=== PATIENT | male | born 1940 | race Caucasian/White ===

== ENCOUNTER → 2017-10-04 | Outpatient (CLI) | payer MEDICARE, OTHER ==
[~2017-10-04] MED LIST: ASPI325 PO; ASPI81CH PO; CARV25 PO; CEPH500 PO; CLOP75 PO; Coreg12.5 MG PO; DOXA2 PO; DOXA4 PO; FURO20 PO; FURO40 PO; FURO80 PO; Glucophage1000 MG PO; INSDET100 SQ; INVOKANA100 MG PO; LIVALO2 MG PO; LIVALO4 MG PO; LOSA50 PO; METF500 PO; METF500C PO; MIRALAX17 GM PO; Milk Of Ma400 MG/5 M PO; NIFE60ER PO; NIFE90ER PO; OLME20 PO; OLME40 PO; POTCHL20ER PO; Pepcid20 MG PO; ROSU10TA PO; SITA100T2 PO; TOUJEO SOL300 UNIT/1 SQ; [UNRECOGNIZED DRUG - OTHER]
== END | disposition home or self-care (01) ==
LOC: PLD 08:23 → LAB SHORT 08:23
DX: C44.222 Squamous cell carcinoma of skin of right ear and external auricular canal (principal)
CPT/HCPCS: 88305

== ENCOUNTER → 2017-11-20 | Outpatient (CLI) | payer MEDICARE, OTHER ==
[~2017-11-20] MED LIST changes: -MIRALAX17 GM PO; -Milk Of Ma400 MG/5 M PO
== END ==
LOC: LAB SHORT 08:02 → PLD 08:02
DX: C44.222 Squamous cell carcinoma of skin of right ear and external auricular canal (principal)
CPT/HCPCS: 88305

== ENCOUNTER → 2019-04-23 | Outpatient (CLI) | payer MEDICARE, OTHER ==
[~2019-04-23] MED LIST changes: +MIRALAX17 GM PO; +Milk Of Ma400 MG/5 M PO
== END | disposition home or self-care (01) ==
LOC: LAB 13:33 → LAB SHORT 13:33
DX: J34.0 Abscess, furuncle and carbuncle of nose (principal)
CPT/HCPCS: 87070; 87205

== ENCOUNTER 2020-01-11 22:02 | Observation (INO) | payer MEDICARE, OTHER ==
[~2020-01-11] VITALS: Ht 170.2 cm; Wt 126.0 kg
[~2020-01-11 22:02] MED LIST changes: -Glucophage1000 MG PO
[2020-01-11 22:25] LABS: BASOPHILS ABSOLUTE AUTO 0.06 K/mm3 (0.00-0.23); BASOPHILS PERCENT AUTO 1 % (0-2); EOSINOPHILS ABSOLUTE AUTO 0.44 K/mm3 (0.00-0.68); EOSINOPHILS PERCENT AUTO 4 % (0-6); Hematocrit 40.9 % (37.0-53.0); Hemoglobin 12.7 g/dL (13.5-17.5); IMMATURE GRAN ABSOLUTE AUTO 0.04 K/mm3 (0.00-0.10); IMMATURE GRAN PERCENT AUTO 0 % (0-1); LYMPHOCYTES ABSOLUTE AUTO 2.41 K/mm3 (0.84-5.20); LYMPHOCYTES PERCENT AUTO 21 % (21-46); MONOCYTES ABSOLUTE AUTO 1.03 K/mm3 (0.16-1.47); MONOCYTES PERCENT AUTO 9 % (4-13); Mean Corpuscular HGB 31.6 pg (26.0-34.0); Mean Corpuscular HGB Conc 31.1 g/dL (31.5-36.5); Mean Corpuscular Volume 102 fL (80-100); Mean Platelet Volume 10.4 fL (9.1-12.4); NEUTROPHILS ABSOLUTE AUTO 7.76 K/mm3 (1.96-9.15); NEUTROPHILS PERCENT AUTO 66 % (41-73); Platelet Count 197 K/mm3 (150-400); RDW Coefficient Variation 11.5 % (11.7-14.2); RDW Standard Deviation 43.1 fL (35.1-46.3); Red Blood Cell Count 4.02 M/mm3 (4.30-5.90); White Blood Cell Count 11.74 K/mm3 (4.00-11.30)
[2020-01-11 22:46] LABS: Alanine Aminotransfer (ALT/SGP 32 U/L (12-78); Albumin, Blood 3.2 g/dL (3.4-5.0); Albumin/Globulin Ratio 0.7 (0.8-1.8); Alk Phos 69 U/L (50-136); Anion Gap 2 mmol/L (6-16); Aspartate Aminotrans (AST/SGOT 30 U/L (12-37); Bilirubin, Total 0.6 mg/dL (0.1-1.0); Blood Urea Nitrogen 13 mg/dL (8-24); Bun/Creatinine Ratio 14.5 (12.0-20.0); CO2, Blood 32 mmol/L (21-32); Calcium, Blood 8.2 mg/dL (8.5-10.1); Chloride, Blood 104 mmol/L (98-108); Globulin, Blood 4.7 g/dL (2.2-4.0); Glomerular Filtration Rate >60 (60-); Glucose, Blood 179 mg/dL (70-99); Potassium, Blood 3.9 mmol/L (3.5-5.5); Sodium, Blood 138 mmol/L (136-145); Total Protein, Blood 7.9 g/dL (6.4-8.2); Troponin I <0.015 ng/mL (0.000-0.040)
[2020-01-12] MEDS ORDERED: ENTRESTO 49 MG1 EACH PO (00:10)
[2020-01-12] MEDS ORDERED: ELIQUIS5 MG PO (00:15)
[2020-01-12] MEDS ORDERED: GLIM2 PO (00:15)
--- NOTE | 2020-01-12 01:04 | NUR ---
0050 PT ADMITTED TO ROOM 361 PER CART FROM ER; REPORT RECEIVED FROM KYLIE FRANK VIA ER; DENIES CHEST PAIN; ALERT AND ORIENTED X 4.
--- NOTE | 2020-01-12 04:03 | NUR ---
SHIFT SUMMARY: 80 Y/O OBESE MALE RESTED COMFORTABLY ALL SHIFT WHILE WEARING BIPAP; ALERT AND ORIENTED X4; HAPPY AND COOPERATIVE; DENIES CHEST PAIN OR SOB; BED LOW POSITION WITH CALL LIGHT AT SIDE.
[2020-01-12 06:30] LABS: BASOPHILS ABSOLUTE AUTO 0.06 K/mm3 (0.00-0.23); BASOPHILS PERCENT AUTO 1 % (0-2); EOSINOPHILS ABSOLUTE AUTO 0.28 K/mm3 (0.00-0.68); EOSINOPHILS PERCENT AUTO 3 % (0-6); Hematocrit 38.8 % (37.0-53.0); Hemoglobin 12.4 g/dL (13.5-17.5); IMMATURE GRAN ABSOLUTE AUTO 0.01 K/mm3 (0.00-0.10); IMMATURE GRAN PERCENT AUTO 0 % (0-1); LYMPHOCYTES ABSOLUTE AUTO 1.95 K/mm3 (0.84-5.20); LYMPHOCYTES PERCENT AUTO 19 % (21-46); MONOCYTES ABSOLUTE AUTO 0.95 K/mm3 (0.16-1.47); MONOCYTES PERCENT AUTO 9 % (4-13); Mean Corpuscular HGB 32.4 pg (26.0-34.0); Mean Corpuscular Volume 101 fL (80-100); Mean Platelet Volume 10.1 fL (9.1-12.4); NEUTROPHILS ABSOLUTE AUTO 6.84 K/mm3 (1.96-9.15); NEUTROPHILS PERCENT AUTO 68 % (41-73); Platelet Count 176 K/mm3 (150-400); RDW Coefficient Variation 11.5 % (11.7-14.2); RDW Standard Deviation 42.7 fL (35.1-46.3); Red Blood Cell Count 3.83 M/mm3 (4.30-5.90); White Blood Cell Count 10.09 K/mm3 (4.00-11.30)
[2020-01-12 06:43] LABS: Alanine Aminotransfer (ALT/SGP 26 U/L (12-78); Albumin/Globulin Ratio 0.7 (0.8-1.8); Alk Phos 69 U/L (50-136); Anion Gap 1 mmol/L (6-16); Aspartate Aminotrans (AST/SGOT 23 U/L (12-37); Bilirubin, Total 0.8 mg/dL (0.1-1.0); Blood Urea Nitrogen 12 mg/dL (8-24); Bun/Creatinine Ratio 14.9 (12.0-20.0); CO2, Blood 33 mmol/L (21-32); Calcium, Blood 8.2 mg/dL (8.5-10.1); Chloride, Blood 105 mmol/L (98-108); Creatinine, Blood 0.81 mg/dL (0.60-1.20); Globulin, Blood 4.5 g/dL (2.2-4.0); Glomerular Filtration Rate >60 (60-); Glucose, Blood 110 mg/dL (70-99); Potassium, Blood 3.5 mmol/L (3.5-5.5); Sodium, Blood 139 mmol/L (136-145); Total Protein, Blood 7.5 g/dL (6.4-8.2)
[2020-01-12 06:51] LABS: CPK Creatine Kinase 73 U/L (39-308); Troponin I <0.015 ng/mL (0.000-0.040)
[2020-01-12 15:55] LABS: CPK Creatine Kinase 79 U/L (39-308); Troponin I <0.015 ng/mL (0.000-0.040)
[2020-01-12] MEDS ORDERED: PANT40 PO (16:55)
[2020-01-12] MEDS ORDERED: TRAM50 PO (16:56)
[2020-01-12] MEDS ORDERED: CARV25 PO (16:57)
--- NOTE | 2020-01-12 17:18 | NUR ---
PATIENT DISCHARGED TO HOME, PICKED UP BY DAUGHTER. NEW PRESCRIPTIONS CALLED IN TO [facility]. IV SALINE LOCK REMOVED WITHOUT INCIDENT. HE HAS ALL BELONGINGS.
== END 2020-01-12 17:10 | disposition home or self-care (01) ==
LOC: ER 22:02 → MEDS 22:03
PROVIDERS: Emergency Medicine; ADMIT Internal Medicine
DX: R07.89 Other chest pain (principal); E11.9 Type 2 diabetes mellitus without complications; I25.10 Atherosclerotic heart disease of native coronary artery without angina pectoris; E66.9 Obesity, unspecified; G47.33 Obstructive sleep apnea (adult) (pediatric); I48.91 Unspecified atrial fibrillation; I10 Essential (primary) hypertension; E78.5 Hyperlipidemia, unspecified; K21.9 Gastro-esophageal reflux disease without esophagitis; I45.5 Other specified heart block; Z95.0 Presence of cardiac pacemaker; Z95.5 Presence of coronary angioplasty implant and graft
CPT/HCPCS: 36415; 71046; 80053; 82550; 82947; 83690; 83880; 84484; 85025; 93005; 93010; 94660; 94762; 96374; 99285-25; A9270; A9270-GY; C9113

== ENCOUNTER → 2020-08-10 | Outpatient (CLI) | payer MEDICARE, OTHER ==
[~2020-08-10] MED LIST changes: +ALBU90OI INH; +ATOR40TA PO; +CARVEDILOL12.5 MG PO; +DOCU100 PO; +ELIQUIS5 MG PO; +ENTRESTO 49 MG1 EACH PO; +GLIMEPIRIDE4 MG PO; +GLYDO PO; +GUAI600T33 PO; +IPRAT-ALBUT 0.5-3 ML INH; +OMEPRAZOLE MAGN20 MG PO; +PANT40 PO; +PULMICORT0.5 MG/21 INH; +Prednisone10 MG PO; +TERA5 PO; -TOUJEO SOL300 UNIT/1 SQ; +TOUJEO SOL300 UNIT/2 SC; +TRAM50 PO; +VERAPAMIL ER120 M1 PO
== END ==
LOC: LAB 11:18 → LAB SHORT 11:18
DX: L82.1 Other seborrheic keratosis (principal)
CPT/HCPCS: 88305

== ENCOUNTER 2020-11-12 12:20 | Inpatient (IN) | payer MEDICARE, OTHER ==
[~2020-11-12] VITALS: Ht 170.2 cm; Wt 128.8 kg
== END 2020-11-16 14:35 | disposition home or self-care (01) | DRG 291 ==
LOC: ER 12:20 → MEDS 16:15 → ENPENDDIS 11-16 11:25 → MEDS 11-16 14:35
PROVIDERS: ADMIT Internal Medicine
DX: I11.0 Hypertensive heart disease with heart failure (principal); J96.01 Acute respiratory failure with hypoxia; J44.1 Chronic obstructive pulmonary disease with (acute) exacerbation; Z68.41 Body mass index [BMI] 40.0-44.9, adult; I48.20 Chronic atrial fibrillation, unspecified; Z20.822 Contact with and (suspected) exposure to COVID-19; I25.10 Atherosclerotic heart disease of native coronary artery without angina pectoris; I50.33 Acute on chronic diastolic (congestive) heart failure; E78.5 Hyperlipidemia, unspecified; I27.20 Pulmonary hypertension, unspecified; I16.0 Hypertensive urgency; K59.00 Constipation, unspecified; T38.0X5A Adverse effect of glucocorticoids and synthetic analogues, initial encounter; E66.01 Morbid (severe) obesity due to excess calories; E11.9 Type 2 diabetes mellitus without complications; G47.33 Obstructive sleep apnea (adult) (pediatric); E11.65 Type 2 diabetes mellitus with hyperglycemia; K21.9 Gastro-esophageal reflux disease without esophagitis; Z99.89 Dependence on other enabling machines and devices; Z95.0 Presence of cardiac pacemaker; Z98.890 Other specified postprocedural states; Z79.4 Long term (current) use of insulin; Z79.01 Long term (current) use of anticoagulants; Z79.899 Other long term (current) drug therapy
CPT/HCPCS: 36415; 71046; 80053; 80069; 82947; 83735; 83880; 84145; 84443; 84484; 85025; 85379; 85610; 93005; 93010; 93306; 94640; 94644; 94660; 94761; 94762; 96365; 96375; 99285-25; A9270; J1940; J2920; J2930; J3475; J7512

== ENCOUNTER 2021-04-07 08:25 | Inpatient (IN) | payer MEDICARE, OTHER ==
[~2021-04-07] VITALS: Ht 188 cm; Wt 129.1 kg
[2021-04-07 08:47] LABS: pH Blood Arterial 7.14 (7.35-7.45)
[2021-04-07 08:48] LABS: PCO2 Arterial 100 mmHg (35-45); PO2 Arterial 175 mmHg (80-100)
[2021-04-07 08:57] LABS: BASOPHILS ABSOLUTE AUTO 0.11 K/mm3 (0.00-0.23); BASOPHILS PERCENT AUTO 1 % (0-2); EOSINOPHILS PERCENT AUTO 3 % (0-6); Hematocrit 41.8 % (37.0-53.0); Hemoglobin 12.7 g/dL (13.5-17.5); IMMATURE GRAN ABSOLUTE AUTO 0.07 K/mm3 (0.00-0.10); IMMATURE GRAN PERCENT AUTO 0 % (0-1); LYMPHOCYTES ABSOLUTE AUTO 3.01 K/mm3 (0.84-5.20); LYMPHOCYTES PERCENT AUTO 17 % (21-46); MONOCYTES ABSOLUTE AUTO 1.24 K/mm3 (0.16-1.47); MONOCYTES PERCENT AUTO 7 % (4-13); Mean Corpuscular HGB Conc 30.4 g/dL (31.5-36.5); Mean Corpuscular Volume 102 fL (80-100); Mean Platelet Volume 10.3 fL (9.1-12.4); NEUTROPHILS PERCENT AUTO 72 % (41-73); Platelet Count 245 K/mm3 (150-400); RDW Coefficient Variation 11.8 % (11.7-14.2); RDW Standard Deviation 44.2 fL (35.1-46.3); White Blood Cell Count 17.53 K/mm3 (4.00-11.30)
[2021-04-07 09:15] LABS: Alanine Aminotransfer (ALT/SGP 37 U/L (12-78); Albumin, Blood 3.8 g/dL (3.4-5.0); Albumin/Globulin Ratio 0.8 (0.8-1.8); Alk Phos 82 U/L (50-136); Anion Gap 2 mmol/L (6-16); Aspartate Aminotrans (AST/SGOT 29 U/L (12-37); Bilirubin, Total 0.6 mg/dL (0.1-1.0); Blood Urea Nitrogen 18 mg/dL (8-24); Bun/Creatinine Ratio 17.6 (12.0-20.0); CO2, Blood 31 mmol/L (21-32); Calcium, Blood 8.2 mg/dL (8.5-10.1); Chloride, Blood 106 mmol/L (98-108); Creatinine, Blood 1.02 mg/dL (0.60-1.20); Globulin, Blood 4.5 g/dL (2.2-4.0); Glomerular Filtration Rate >60 (60-); Glucose, Blood 196 mg/dL (70-99); Potassium, Blood 4.3 mmol/L (3.5-5.5); Sodium, Blood 139 mmol/L (136-145); Total Protein, Blood 8.3 g/dL (6.4-8.2); Troponin I <0.015 ng/mL (0.000-0.040)
[2021-04-07 09:33] LABS: SARS-Cov-2 (COVID-19) PCR, MMC NEGATIVE (NEGATIVE)
[2021-04-07] MEDS ORDERED: METO5 PO (12:22)
[2021-04-07] MEDS ORDERED: ARNUITY ELLIP200 MCG INH (12:24)
[2021-04-07 14:41] LABS: Base Excess Venous 9.7 mmol/L; Bicarbonate Venous 31.6 mmol/L (24.0-30.0); PCO2 Venous 61.2 mmHg (38-42); PO2 Venous 141 mmHg (38-42); pH Blood Venous 7.37 (7.34-7.37)
--- NOTE | 2021-04-07 16:33 | NUR ---
RECIEVED REPORT FROM EUGENIO @ 4059. PATIENT ARRIVED TO ROOM 347 @ 1851. FOUR STAFF MEMBERS ASSISTED TO TRANSFER PATIENT FROM STRETCHER TO HOSPITAL BED. PATIENT IS ALERT AND ORIENTED. BP ELEVATED. PATIENT ASSISTED WITH COMPLETION OF ADMISSION H&P. AWAITING FOR [facility] TO SEND PATIENTS MED REC.
[2021-04-07] MEDS ORDERED: METO25ER PO (17:11)
[2021-04-07] MEDS ORDERED: ELLIPTA INH (17:16)
--- NOTE | 2021-04-08 04:45 | NUR ---
SHIFT SUMMARRY PATIENT HAD AN EVENT FREE NIGHT WITH NO ACUTE MEDICAL ISSUES. HE REMAINS STABLE WITH O2 SATS AVER 95% ON BIPAP.
[2021-04-08 05:44] LABS: BASOPHILS ABSOLUTE AUTO 0.01 K/mm3 (0.00-0.23); BASOPHILS PERCENT AUTO 0 % (0-2); EOSINOPHILS ABSOLUTE AUTO 0.01 K/mm3 (0.00-0.68); EOSINOPHILS PERCENT AUTO 0 % (0-6); Hematocrit 34.3 % (37.0-53.0); Hemoglobin 10.9 g/dL (13.5-17.5); IMMATURE GRAN ABSOLUTE AUTO 0.05 K/mm3 (0.00-0.10); IMMATURE GRAN PERCENT AUTO 1 % (0-1); LYMPHOCYTES ABSOLUTE AUTO 1.21 K/mm3 (0.84-5.20); LYMPHOCYTES PERCENT AUTO 12 % (21-46); MONOCYTES PERCENT AUTO 8 % (4-13); Mean Corpuscular HGB 31.1 pg (26.0-34.0); Mean Corpuscular HGB Conc 31.8 g/dL (31.5-36.5); Mean Corpuscular Volume 98 fL (80-100); Mean Platelet Volume 10.2 fL (9.1-12.4); NEUTROPHILS ABSOLUTE AUTO 8.04 K/mm3 (1.96-9.15); NEUTROPHILS PERCENT AUTO 79 % (41-73); Platelet Count 195 K/mm3 (150-400); RDW Coefficient Variation 11.9 % (11.7-14.2); RDW Standard Deviation 42.5 fL (35.1-46.3); Red Blood Cell Count 3.51 M/mm3 (4.30-5.90); White Blood Cell Count 10.12 K/mm3 (4.00-11.30)
[2021-04-08 06:35] LABS: Albumin, Blood 3.1 g/dL (3.4-5.0); Albumin/Globulin Ratio 0.8 (0.8-1.8); Bilirubin, Total 0.5 mg/dL (0.1-1.0); Bun/Creatinine Ratio 22.5 (12.0-20.0); Calcium, Blood 8.9 mg/dL (8.5-10.1); Creatinine, Blood 1.2 mg/dL (0.60-1.20); Magnesium, Blood 1.6 mg/dL (1.6-2.4); Potassium, Blood 3.6 mmol/L (3.5-5.5); Total Protein, Blood 7.1 g/dL (6.4-8.2)
--- NOTE | 2021-04-08 18:49 | NUR ---
PT ON ROOM AIR THIS SHIFT. TOLERATED WELL. NO COMPLAINTS. CALL LIGHT WITHIN REACH.
[2021-04-09 04:38] LABS: Base Excess Venous 19.6 mmol/L; Bicarbonate Venous 41.3 mmol/L (24.0-30.0); PCO2 Venous 53.3 mmHg (38-42); PO2 Venous 129 mmHg (38-42); pH Blood Venous 7.51 (7.34-7.37)
[2021-04-09 05:15] LABS: BASOPHILS ABSOLUTE AUTO 0.04 K/mm3 (0.00-0.23); BASOPHILS PERCENT AUTO 1 % (0-2); EOSINOPHILS ABSOLUTE AUTO 0.33 K/mm3 (0.00-0.68); EOSINOPHILS PERCENT AUTO 4 % (0-6); Hematocrit 34.6 % (37.0-53.0); Hemoglobin 11.2 g/dL (13.5-17.5); IMMATURE GRAN ABSOLUTE AUTO 0.02 K/mm3 (0.00-0.10); IMMATURE GRAN PERCENT AUTO 0 % (0-1); LYMPHOCYTES ABSOLUTE AUTO 1.94 K/mm3 (0.84-5.20); LYMPHOCYTES PERCENT AUTO 22 % (21-46); MONOCYTES ABSOLUTE AUTO 0.75 K/mm3 (0.16-1.47); MONOCYTES PERCENT AUTO 9 % (4-13); Mean Corpuscular HGB Conc 32.4 g/dL (31.5-36.5); Mean Corpuscular Volume 96 fL (80-100); Mean Platelet Volume 10.3 fL (9.1-12.4); NEUTROPHILS PERCENT AUTO 65 % (41-73); Platelet Count 187 K/mm3 (150-400); RDW Coefficient Variation 11.8 % (11.7-14.2); RDW Standard Deviation 41.4 fL (35.1-46.3); Red Blood Cell Count 3.61 M/mm3 (4.30-5.90); White Blood Cell Count 8.78 K/mm3 (4.00-11.30)
[2021-04-09 05:37] LABS: Bun/Creatinine Ratio 23.2 (12.0-20.0); Calcium, Blood 8.5 mg/dL (8.5-10.1); Creatinine, Blood 1.25 mg/dL (0.60-1.20)
--- NOTE | 2021-04-09 07:40 | NUR ---
SHIFT SUMMARY ASSUMED CARE OF PT AT 1900. PT IS A/OX4. HEART SOUNDS REGULAR, LUNG SOUNDS DIMINISHED, PT USED HIS BIPAP T/O THE NIGHT. PT WAS INDEPENDENT IN THE ROOM. THIS AM AROUND 0600, PT C/O CHEST PAIN WHICH HE SAID COULD BE BECUASE HE IS FEELING GASY, HOSPITALIST WAS CALLED AND ORDERED TUMS, DAYSHIFT NURSE TO GIVE. VITAL SIGNS STABLE. CALL LIGHT IN REACH, BED IN LOWEST POSITION.
--- NOTE | 2021-04-09 17:46 | NUR ---
PT IS ALERT AND ORIENTED AND ABLE TO EXPRESS HIS NEEDS. HE HAS BEEN UP IN THE ROOM THROUGH OUT THE SHIFT. PT IS NPO THIS EVENING. NO COMPLAINTS OF PAIN,SOB OR NVD. CALL LIGHT WITHIN REACH, WILL CONTINUE TO MONITOR.
[2021-04-10 04:43] LABS: BASOPHILS ABSOLUTE AUTO 0.04 K/mm3 (0.00-0.23); BASOPHILS PERCENT AUTO 1 % (0-2); EOSINOPHILS ABSOLUTE AUTO 0.44 K/mm3 (0.00-0.68); EOSINOPHILS PERCENT AUTO 5 % (0-6); Hematocrit 38.2 % (37.0-53.0); IMMATURE GRAN ABSOLUTE AUTO 0.01 K/mm3 (0.00-0.10); IMMATURE GRAN PERCENT AUTO 0 % (0-1); LYMPHOCYTES ABSOLUTE AUTO 2.04 K/mm3 (0.84-5.20); LYMPHOCYTES PERCENT AUTO 25 % (21-46); MONOCYTES ABSOLUTE AUTO 0.97 K/mm3 (0.16-1.47); MONOCYTES PERCENT AUTO 12 % (4-13); Mean Corpuscular HGB 30.9 pg (26.0-34.0); Mean Corpuscular HGB Conc 31.4 g/dL (31.5-36.5); Mean Corpuscular Volume 99 fL (80-100); Mean Platelet Volume 10.3 fL (9.1-12.4); NEUTROPHILS PERCENT AUTO 57 % (41-73); Platelet Count 209 K/mm3 (150-400); RDW Standard Deviation 43.2 fL (35.1-46.3); Red Blood Cell Count 3.88 M/mm3 (4.30-5.90)
[2021-04-10 05:07] LABS: Bun/Creatinine Ratio 21.7 (12.0-20.0); Creatinine, Blood 1.29 mg/dL (0.60-1.20); Magnesium, Blood 1.8 mg/dL (1.6-2.4); Potassium, Blood 3.2 mmol/L (3.5-5.5); Thyroid Stimulating Hormone 1.21 uIU/mL (0.360-4.800)
--- NOTE | 2021-04-10 06:03 | NUR ---
SHIFT SUMMARRY PATIENT SLEPT MOST OF THE NIGHT. O2 SATS IN NINETIES ON RA AND IGH NINETIES ON 3L/NC. REMAINS NPO
--- NOTE | 2021-04-10 18:31 | NUR ---
Shift Summary, The patient is A/OX4 to person, place, time and event. The patient has been cooperative and pleasent with care. He has been independent in the room. The patient was educated about exercising by ambullating in the room. The patient has been walking around his room this afternoon. He stated that he feels the swelling in his legs have decreased and he feels much better. The patient is currently lying in bed watching TV.
[2021-04-11 05:43] LABS: Bun/Creatinine Ratio 22.3 (12.0-20.0); Calcium, Blood 8.8 mg/dL (8.5-10.1); Creatinine, Blood 1.57 mg/dL (0.60-1.20); Potassium, Blood 3.3 mmol/L (3.5-5.5)
--- NOTE | 2021-04-11 06:22 | NUR ---
SHIFT SUMMARRY PATIENT C/O ACID REFUX AT BEGINNIG OF SHIFT. MD NOTIFIED 500MG OF TUMS ORDERED PRN, AND OMEPRAZOLE 20MG ORDERED DAILY IN THE MORNING. NO ACUTE MEDICAL CHANGES THIS SHIFT. PATIENT SLEPT MOST OF THE NIGHT.
[2021-04-11] MEDS ORDERED: INSULANPEN SC (13:47)
[2021-04-11] MEDS ORDERED: SPIR50 PO (13:49)
[2021-04-11] MEDS ORDERED: LINZESS72 MCG PO (13:49)
--- NOTE | 2021-04-11 15:53 | NUR ---
Discharge Summary, The patient is A/OX4 to person, place, time and event. The patient has been cooperative with care and he has been independent in the room. The patient was on RA most of the morning and ambulated without oxygen. He did have 3lpm NC PRN and would use it as needed. The patient denied any chest pain or SOB. He felt he was ready to leave today and felt he could manage his care from home. He was given verbal and written discharge instructions that told him to f/u with PCP and Deck Officer this week and he was given information on new medications and DC'd medications. He was provided with infomation about carb counting to control his blood glucose, and he was given information about the DASH diet and low sodium. He did not have any questions or concerns about discharging. The patient was taken to the front of the hospital by TASNEEM and the patient went home with grandchild.
== END 2021-04-11 15:05 | disposition home or self-care (01) | DRG 291 ==
LOC: ER 08:25 → MEDS 11:17 → ERHOLD 11:17 → MEDS 15:51
PROVIDERS: Emergency Medicine; Internal Medicine; Nurse Practitioner Acute Care; ADMIT Internal Medicine
PROC: 5A09357 Assistance with Respiratory Ventilation, Less than 24 Consecutive Hours, Continuous Positive Airway Pressure (ICD-10-PCS; principal; 2021-04-07)
DX: I13.0 Hypertensive heart and chronic kidney disease with heart failure and stage 1 through stage 4 chronic kidney disease, or unspecified chronic kidney disease (principal); J96.01 Acute respiratory failure with hypoxia; J96.02 Acute respiratory failure with hypercapnia; I50.33 Acute on chronic diastolic (congestive) heart failure; Z68.41 Body mass index [BMI] 40.0-44.9, adult; R65.10 Systemic inflammatory response syndrome (SIRS) of non-infectious origin without acute organ dysfunction; I48.20 Chronic atrial fibrillation, unspecified; K56.0 Paralytic ileus; Z20.822 Contact with and (suspected) exposure to COVID-19; I25.10 Atherosclerotic heart disease of native coronary artery without angina pectoris; Z66 Do not resuscitate; E87.6 Hypokalemia; E66.01 Morbid (severe) obesity due to excess calories; E78.5 Hyperlipidemia, unspecified; E11.22 Type 2 diabetes mellitus with diabetic chronic kidney disease; N18.30 Chronic kidney disease, stage 3 unspecified; K59.09 Other constipation; K21.9 Gastro-esophageal reflux disease without esophagitis; G47.33 Obstructive sleep apnea (adult) (pediatric); Z95.5 Presence of coronary angioplasty implant and graft; Z86.718 Personal history of other venous thrombosis and embolism; Z91.19 Patient's noncompliance with other medical treatment and regimen; Z98.890 Other specified postprocedural states; Z95.0 Presence of cardiac pacemaker; Z79.4 Long term (current) use of insulin
CPT/HCPCS: 36415; 36600; 71045; 74018; 80048; 80053; 82803; 82947; 83605; 83735; 83880; 84145; 84443; 84484; 85025; 87040; 93005; 93010; 94640; 94644; 94660; 94762; 96365; 96367; 96375; 99285-25; A9270; J0456; J0696; J1940; J2930; J7050; U0004

== ENCOUNTER 2021-09-10 12:37 | Day surgery (SDC) | payer MEDICARE, OTHER ==
[~2021-09-10] VITALS: Ht 167.6 cm; Wt 123.8 kg
[~2021-09-10 12:37] MED LIST changes: +AMOX-CLAV 875-1 EAC5 PO; +ARNUITY ELLIP200 MCG INH; +ELLIPTA INH; +ENTRESTO 24 MG1 EACH PO; +INSULANPEN SC; +K-Dur10 MEQ; +LINZESS72 MCG PO; +METO100ER; +METO25ER PO; +METO5 PO; +METO5A; +PANT40; +SPIR25; +SPIR50 PO; +TORSE20; +TOUJEO MAX300 UNIT/2
[2021-09-10] MEDS ORDERED: Isosorbide Mono30 MG (13:10)
== END 2021-09-10 15:25 | disposition home or self-care (01) ==
LOC: ORSCSDS 12:37
PROVIDERS: Internal Medicine Gastroenterology
PROC: 0DB68ZX Excision of Stomach, Via Natural or Artificial Opening Endoscopic, Diagnostic (ICD-10-PCS; principal; 2021-09-10 13:45)
PROC: 0DB98ZX Excision of Duodenum, Via Natural or Artificial Opening Endoscopic, Diagnostic (ICD-10-PCS; principal; 2021-09-10 13:45)
DX: K25.7 Chronic gastric ulcer without hemorrhage or perforation (principal); R14.3 Flatulence; R14.2 Eructation; R10.9 Unspecified abdominal pain; Z99.81 Dependence on supplemental oxygen; K21.9 Gastro-esophageal reflux disease without esophagitis; E78.5 Hyperlipidemia, unspecified; I48.91 Unspecified atrial fibrillation; Z80.0 Family history of malignant neoplasm of digestive organs; E11.9 Type 2 diabetes mellitus without complications; J44.9 Chronic obstructive pulmonary disease, unspecified; E66.01 Morbid (severe) obesity due to excess calories; Z68.41 Body mass index [BMI] 40.0-44.9, adult; Z79.82 Long term (current) use of aspirin; Z79.4 Long term (current) use of insulin; Z79.01 Long term (current) use of anticoagulants; Z79.899 Other long term (current) drug therapy
CPT/HCPCS: 82947; 88305; 88342; J2001; J2250; J2704; J7120

== ENCOUNTER 2021-09-19 19:22 | Inpatient (IN) | payer MEDICARE, OTHER ==
[~2021-09-19] VITALS: Ht 170.2 cm; Wt 127.0 kg
[~2021-09-19 19:22] MED LIST changes: +Isosorbide Mono30 MG; -METO100ER; +METO100ER PO; -SPIR25; +SPIR25 PO
[2021-09-19 20:01] LABS: BASOPHILS ABSOLUTE AUTO 0.07 K/mm3 (0.00-0.23); BASOPHILS PERCENT AUTO 1 % (0-2); EOSINOPHILS ABSOLUTE AUTO 0.45 K/mm3 (0.00-0.68); EOSINOPHILS PERCENT AUTO 4 % (0-6); Hematocrit 33.9 % (37.0-53.0); IMMATURE GRAN ABSOLUTE AUTO 0.06 K/mm3 (0.00-0.10); IMMATURE GRAN PERCENT AUTO 1 % (0-1); LYMPHOCYTES ABSOLUTE AUTO 1.66 K/mm3 (0.84-5.20); LYMPHOCYTES PERCENT AUTO 14 % (21-46); MONOCYTES ABSOLUTE AUTO 0.98 K/mm3 (0.16-1.47); MONOCYTES PERCENT AUTO 8 % (4-13); Mean Corpuscular HGB 28.6 pg (26.0-34.0); Mean Corpuscular HGB Conc 29.5 g/dL (31.5-36.5); Mean Corpuscular Volume 97 fL (80-100); Mean Platelet Volume 9.7 fL (9.1-12.4); NEUTROPHILS ABSOLUTE AUTO 8.67 K/mm3 (1.96-9.15); NEUTROPHILS PERCENT AUTO 73 % (41-73); Platelet Count 256 K/mm3 (150-400); RDW Coefficient Variation 14.2 % (11.7-14.2); RDW Standard Deviation 50.3 fL (35.1-46.3); White Blood Cell Count 11.89 K/mm3 (4.00-11.30)
[2021-09-19 20:15] LABS: Albumin, Blood 3.4 g/dL (3.4-5.0); Albumin/Globulin Ratio 0.6 (0.8-1.8); Bilirubin, Total 0.8 mg/dL (0.1-1.0); Calcium, Blood 8.7 mg/dL (8.5-10.1); Creatinine, Blood 1.31 mg/dL (0.60-1.20); Globulin, Blood 5.3 g/dL (2.2-4.0); Potassium, Blood 3.7 mmol/L (3.5-5.5); Total Protein, Blood 8.7 g/dL (6.4-8.2)
[2021-09-19 21:32] LABS: Influenza A, PCR NEGATIVE (NEGATIVE); Influenza B, PCR NEGATIVE (NEGATIVE); Resp Syncytial Virus, PCR NEGATIVE (NEGATIVE); SARS-Cov-2 (COVID-19) PCR, MMC NEGATIVE (NEGATIVE)
[2021-09-19 22:33] LABS: Free Thyroxine 1.22 ng/dL (0.70-1.60); Thyroid Stimulating Hormone 2.12 uIU/mL (0.360-4.800)
[2021-09-19 22:40] LABS: pH Blood Venous 7.38 (7.34-7.37)
[2021-09-19 22:41] LABS: Base Excess Venous 15.7 mmol/L; Bicarbonate Venous 37.4 mmol/L (24.0-30.0); PCO2 Venous 69.2 mmHg (38-42); PO2 Venous 176 mmHg (38-42)
--- NOTE | 2021-09-19 23:55 | NUR ---
ADMISSION REPORT RECIEVED FROM ER NURSE. PATIENT ARRIVED TO PCU 15 VIA ER GURNEY WITH NONREBREATHER IN PLACE. AUDIBLE WHEEZING HEARD WHILE PATIENT SETTLING INTO ROOM. PATIENT ABLE TO STAND AND MOVE SELF TO RECLINER. RT AT BEDSIDE PLACING BIPAP. ONCE BIPAP IN PLACE, THIS RN COULD NO LONGER HEAR AUDIBLE WHEEZING. NITRO PASTE IN PLACE TO LEFT CHEST WALL. VSS. DENIES ANY PAIN AT THIS TIME. PATIENT ABLE TO STAND AND USE URINAL WITH ASSISTANCE OF STAFF. PATIENT ABLE TO MAKE NEEDS KNOWN.
[2021-09-20 04:29] LABS: BASOPHILS ABSOLUTE AUTO 0.05 K/mm3 (0.00-0.23); BASOPHILS PERCENT AUTO 1 % (0-2); EOSINOPHILS ABSOLUTE AUTO 0.27 K/mm3 (0.00-0.68); EOSINOPHILS PERCENT AUTO 3 % (0-6); Hematocrit 30.9 % (37.0-53.0); Hemoglobin 9.1 g/dL (13.5-17.5); IMMATURE GRAN ABSOLUTE AUTO 0.04 K/mm3 (0.00-0.10); IMMATURE GRAN PERCENT AUTO 0 % (0-1); LYMPHOCYTES ABSOLUTE AUTO 1.46 K/mm3 (0.84-5.20); LYMPHOCYTES PERCENT AUTO 14 % (21-46); MONOCYTES ABSOLUTE AUTO 0.83 K/mm3 (0.16-1.47); MONOCYTES PERCENT AUTO 8 % (4-13); Mean Corpuscular HGB 28.7 pg (26.0-34.0); Mean Corpuscular HGB Conc 29.4 g/dL (31.5-36.5); Mean Corpuscular Volume 98 fL (80-100); NEUTROPHILS ABSOLUTE AUTO 8.18 K/mm3 (1.96-9.15); NEUTROPHILS PERCENT AUTO 75 % (41-73); Platelet Count 207 K/mm3 (150-400); RDW Coefficient Variation 14.2 % (11.7-14.2); Red Blood Cell Count 3.17 M/mm3 (4.30-5.90); White Blood Cell Count 10.83 K/mm3 (4.00-11.30)
[2021-09-20 04:51] LABS: Bun/Creatinine Ratio 16.3 (12.0-20.0); Calcium, Blood 8.4 mg/dL (8.5-10.1); Creatinine, Blood 1.29 mg/dL (0.60-1.20); Potassium, Blood 3.5 mmol/L (3.5-5.5)
--- NOTE | 2021-09-20 05:51 | NUR ---
SHIFT SUMMARY PATIENT ALERT AND ORIENTED x4 THIS SHIFT. VSS. PATIENT ON BIPAP WITH 10L BLEED IN. PATIENT ABLE TO TOLERATE SMALL BREAKS FROM BIPAP WITH NC 4-5L FOR FOOD/WATER. PATIENT ABLE TO STAND AT BEDSIDE AND USE URINAL AT BEDSIDE WITH ASSISTANCE OF STAFF. MAKES NEEDS KNOWNN TO STAFF. NO OTHER ACUTE CHANGES SINCE ADMISSION. BED IN LOW POSITION, CALL LIGHT IN REACH.
--- NOTE | 2021-09-20 17:11 | NUR ---
SHIFT SUMMARY PT ALERT AND ORIENTED. VS STABLE. O2 SATS HAVE REMAINED ABOVE 90% ON 4L NC. PT REPORTS IT FEELS EASIER TO BREATHE THIS AFTERNOON. HR PACED. BP STABLE. PT DENIES ANY PAIN. PT ABLE TO STAND AND TRANSFER IN ROOM INDEPENDENTLY. PT CHANGED TO MEDICAL STATUS THIS SHIFT. WILL CONTINUE TO MONITOR AND REPORT TO ONCOMING RN
[2021-09-21 04:21] LABS: Calcium, Blood 8.9 mg/dL (8.5-10.1); Creatinine, Blood 1.47 mg/dL (0.60-1.20); Potassium, Blood 3.4 mmol/L (3.5-5.5)
--- NOTE | 2021-09-21 05:37 | NUR ---
SHIFT SUMMARY PATIENT MED WITH TELE STATUS. ALERT AND ORIENTED X4. VSS. HR PACED. PATIENT ALTERNATING BETWEEN 4-5L NC AND CPAP. NO CHANGE TO CPAP SETTINGS SINCE ADMISSION. O2 SATS MAINTIANING >90%. PATIENT DOES DESAT WITH ACTIVITY BUT IS ABLE TO RECOVER QUCIKLY. PATIENT ABLE TO USE URINAL AT BEDSIDE INDEPENDENTLY. PATIENT MENTIONED HE IS FEELING BETTER SINCE ADMISSION. PATIENT HAD EPISODE OF MUSCLE CRAMPS, CALL PLACED TO HOSPITALIST, ORDER FOR PRN FLEXERIL OBTAINED, SEE EMAR. NO OTHER ACUTE CHANGES, WILL REPORT TO DAY SHIFT RN.
--- NOTE | 2021-09-21 14:47 | NUR ---
PT C/O MUSCLE CRAMPS IN LEGS/HANDS. FLEXERIL NOT EFFECTIVE. DR PAYNE NOTIFIED, WILL PLACE NEW ORDERS.
--- NOTE | 2021-09-21 18:12 | NUR ---
NO ACUTE EVENTS TODAY. PT HAS HAD GOOD URINE OUTPUT. PT HAS HAD A FEW VISITORS WHICH SEEMED TO LIFT HIS SPIRITS. PT DENIES PAIN OR ANY NEEDS AT THIS TIME. VSS. WILL CONTINUE TO MONITOR AND REPORT OFF TO JAK RN.
[2021-09-22 03:56] LABS: Calcium, Blood 8.8 mg/dL (8.5-10.1); Creatinine, Blood 1.4 mg/dL (0.60-1.20); Magnesium, Blood 2.1 mg/dL (1.6-2.4); Potassium, Blood 3.6 mmol/L (3.5-5.5)
--- NOTE | 2021-09-22 05:59 | NUR ---
SHIFT SUMMARY MED WITH TELE STATUS. PATIENT ALERT AND ORIENTED x4 THIS SHIFT. VSS. PATIENT ALTERNATING BETWEEN CPAP AND 3L NC WITH O2 SAT >90%. COMPLAINTS OF MUSCLE CRAMPS X2 THIS SHIFT, MEDICATED PER EMAR. PATIENT USING URINAL INDEPENDENTLY. NO OTHER ACUTE CHANGES THIS SHIFT, WILL REPORT TO DAY SHIFT RN.
--- NOTE | 2021-09-22 16:27 | NUR ---
SHIFT SUMMARY Pt has been a/o x 4 and very pleasant. He is independent in the room and has been using the urinal as we continue to diuresis him. He is on 3 lpm via NC and this is his baseline. He has a good appetite and PO fluid intake. He had a visitor for a short time this afternoon. His blood sugars have been covered with sliding scale as ordered. He is able to make his needs known and calls for help when needed.
--- NOTE | 2021-09-22 19:00 | NUR ---
ASSUMPTION OF CARE PT LYING IN BED WATCHING TELEVISION AT THIS TIME. HE IS ALERT/ORIENTED AND VERY PLEASANT. HE AMBULATES TO CHAIR INDEPENDENTLY WITH STEADY GAIT. HE IS ON 3L NC WHICH IS HIS BASELINE AT HOME. PT USES URINAL INDEPENDENTLY. VSS AT THIS TIME. SEE SHIFT ASSESSMENT.
--- NOTE | 2021-09-22 23:30 | NUR ---
UPDATE PT WOKE AND WANTED TO TAKE CPAP OFF. IT WAS REMOVED AT THIS TIME AND 3L NC WAS PLACED. HE REPORTS THIS IS HIS USUAL ROUTINE AND HE HAS DIFFICULTY SLEEPING SOUNDLY THROUGH THE NIGHT. HE SITS ON THE EDGE OF THE BED AND IS PROVIDED SNACKS. MEDICATED PER EMAR. PT CURRENTLY LYING IN BED SLEEPING.
--- NOTE | 2021-09-23 05:04 | NUR ---
SHIFT SUMMARY PT HAS SLEPT THROUGH MOST OF NIGHT AND REPOSITIONS SELF. HE REMAINS ALERT AND ORIENTED. HE USES THE URINAL INDEPENDENTLY. IV IS SALINE LOCKED. HE HAS REMAINS STABLE THROUGHOUT THE SHIFT WITH NO ACUTE CHANGES. VSS. WILL REPORT TO ONCOMING RN.
--- NOTE | 2021-09-23 08:05 | NUR ---
ASSUMPTION OF CARE Pt is a/o x 4 with no complaints. He remains on 3 lpm via NC which is his baseline. He still has +1 pitting edema to BLE and he is still getting the lasix as ordered. He uses the urinal as needed and calls for help appropriately.
[2021-09-23] MEDS ORDERED: JARDIANCE25 MG PO (11:11)
[2021-09-23] MEDS ORDERED: Isosorbide Mono30 MG PO (11:12)
[2021-09-23] MEDS ORDERED: OMEP20ER PO (11:12)
[2021-09-23] MEDS ORDERED: ENTRESTO 24 MG1 EACH PO (11:13)
[2021-09-23] MEDS ORDERED: BUME1 PO (11:14)
[2021-09-23] MEDS ORDERED: TIZA4 PO (11:14)
--- NOTE | 2021-09-23 11:33 | NUR ---
PT DCD HOME Per Dr Cevallos the pt is being dcd home with family and home health. All the meds and instructions were reviewed with the pt and her verbalized an understanding. Med rec was faxed to [facility]. His IV was removed with no issue. He got himself dressed and packed his personal items. He is waiting on his daughter to come pick him up.
== END 2021-09-23 12:10 | disposition home health service (06) | DRG 291 ==
LOC: ER 19:22 → PCU 21:56
PROVIDERS: Emergency Medicine; Internal Medicine; Student in an Organized Health Care Education/Training Program; ADMIT Internal Medicine
DX: I13.0 Hypertensive heart and chronic kidney disease with heart failure and stage 1 through stage 4 chronic kidney disease, or unspecified chronic kidney disease (principal); J96.01 Acute respiratory failure with hypoxia; I50.33 Acute on chronic diastolic (congestive) heart failure; E87.2 Acidosis; I48.20 Chronic atrial fibrillation, unspecified; Z68.41 Body mass index [BMI] 40.0-44.9, adult; Z20.822 Contact with and (suspected) exposure to COVID-19; Z53.29 Procedure and treatment not carried out because of patient's decision for other reasons; E66.01 Morbid (severe) obesity due to excess calories; I25.10 Atherosclerotic heart disease of native coronary artery without angina pectoris; G47.33 Obstructive sleep apnea (adult) (pediatric); J44.9 Chronic obstructive pulmonary disease, unspecified; E87.6 Hypokalemia; K59.09 Other constipation; N18.30 Chronic kidney disease, stage 3 unspecified; E11.22 Type 2 diabetes mellitus with diabetic chronic kidney disease; E11.65 Type 2 diabetes mellitus with hyperglycemia; E78.5 Hyperlipidemia, unspecified; Z99.89 Dependence on other enabling machines and devices; Z95.0 Presence of cardiac pacemaker; Z95.5 Presence of coronary angioplasty implant and graft; Z98.890 Other specified postprocedural states; Z79.01 Long term (current) use of anticoagulants; Z79.4 Long term (current) use of insulin; Z79.82 Long term (current) use of aspirin; Z79.899 Other long term (current) drug therapy
CPT/HCPCS: 0241U; 36415; 71045; 80048; 80053; 82533; 82803; 82947; 83735; 83880; 84439; 84443; 84484; 85025; 93005; 93010; 94640; 94660; 94762; 96374; 96375; 99285-25; A9270; J1815; J1940; J2060

== ENCOUNTER 2022-11-15 11:03 | Inpatient (IN) | payer MEDICARE, OTHER ==
[~2022-11-15] VITALS: Ht 170.2 cm; Wt 121.0 kg
[~2022-11-15 11:03] MED LIST changes: +BUME1 PO; +Isosorbide Mono30 MG PO; +JARDIANCE25 MG PO; +OMEP20ER PO; +TIZA4 PO; -TOUJEO MAX300 UNIT/2; +TOUJEO MAX300 UNIT/2 SC
[2022-11-15 11:44] LABS: BASOPHILS ABSOLUTE AUTO 0.06 K/mm3 (0.00-0.23); BASOPHILS PERCENT AUTO 1 % (0-2); EOSINOPHILS ABSOLUTE AUTO 0.15 K/mm3 (0.00-0.68); EOSINOPHILS PERCENT AUTO 1 % (0-6); Hematocrit 41.7 % (37.0-53.0); Hemoglobin 13.4 g/dL (13.5-17.5); IMMATURE GRAN ABSOLUTE AUTO 0.05 K/mm3 (0.00-0.10); IMMATURE GRAN PERCENT AUTO 0 % (0-1); LYMPHOCYTES ABSOLUTE AUTO 1.28 K/mm3 (0.84-5.20); LYMPHOCYTES PERCENT AUTO 11 % (21-46); MONOCYTES PERCENT AUTO 8 % (4-13); Mean Corpuscular HGB 31.2 pg (26.0-34.0); Mean Corpuscular HGB Conc 32.1 g/dL (31.5-36.5); Mean Corpuscular Volume 97 fL (80-100); NEUTROPHILS ABSOLUTE AUTO 9.21 K/mm3 (1.96-9.15); NEUTROPHILS PERCENT AUTO 79 % (41-73); Platelet Count 206 K/mm3 (150-400); RDW Coefficient Variation 12.3 % (11.7-14.2); RDW Standard Deviation 44.1 fL (35.1-46.3); White Blood Cell Count 11.65 K/mm3 (4.00-11.30)
[2022-11-15 12:02] LABS: Albumin, Blood 3.2 g/dL (3.4-5.0); Albumin/Globulin Ratio 0.6 (0.8-1.8); Bun/Creatinine Ratio 12.9 (12.0-20.0); Creatinine, Blood 1.01 mg/dL (0.60-1.20); Globulin, Blood 5.2 g/dL (2.2-4.0); Potassium, Blood 3.3 mmol/L (3.5-5.5); Total Protein, Blood 8.4 g/dL (6.4-8.2)
[2022-11-15 14:39] LABS: Magnesium, Blood 1.4 mg/dL (1.6-2.4); Phosphorus, Blood 2.2 mg/dL (2.5-4.9)
--- NOTE | 2022-11-15 16:45 | NUR ---
ADMISSION: PT ADMITTED FROM ER5 TO [place] [id number] AT 1645 VIA BED. PT A&O X4, PLEASANT, HAPPY AND ABLE TO MAKE NEEDS KNOWN. PT ABLE TO AMBULATE FROM BED SBA. PT HAS OXYGEN 2L NC FOR COMFORT. PT RECEVIED FIRST HALF OF STRESS TEST IN THE ER AND AT 1715 TRANSFERED TO IMAGING FOR SECOND PART OF STRESS TEST.
[2022-11-15 16:55] VITALS: BP 158/99
[2022-11-15] MEDS ORDERED: TOLT4 PO (17:04)
[2022-11-15] MEDS ORDERED: POTA10T PO (17:04)
[2022-11-15] MEDS ORDERED: Phospha 250 Ne250 MG PO (17:07)
[2022-11-15] MEDS ORDERED: ALBU8HFA2 INH (17:08)
[2022-11-15] MEDS ORDERED: Flonase 0.05% N16 GM (17:09)
[2022-11-15] MEDS ORDERED: NITR.4SL SL (17:10)
[2022-11-15 19:58] VITALS: BP 162/101
--- NOTE | 2022-11-15 20:36 | NUR ---
START OF SHIFT NOTE THIS STUDENT NURSE ASSUMED CARE OF PT UNDER THE OBSERVATION OF ALBERTA VALENTINO AT 1900 ON 11/15/22. JUAN IS A&O X4 WITH NO MENTAL DEFICIT NOTED AT THIS TIME. CLARIFIED WITH JUAN ON HIS LIMITED CODE STATUS AND RECEIVED COMFIRMATION THAT HE DOES NOT WISH TO RECEIVE CPR IN THE CASE OF HEART FAILURE. WILL FOLLOW UP WITH DR GISELLE JOHN WITH PT. REQUESTED IF HE COULD HAVE SOMEONE BRING IN HIS HOME MEDICATION. WILL FOLLOW UP WITH PATIENT. GAVE LOPRESSOR FOR HIGH BLOOD PRESSURE AT 20:15 ALONG WITH HIS HS MEDICATIONS PERFORMED PHYSICAL ASSESSMENT UNDER THE OBSERVATION OF ALBERTA VALENTINO AND FOUND 4+ PITTING EDEMA BILATERALLY. LUNG SOUNDS DIMINISHED WITH AN EXPIRATORY WHEEZE. PATIENT WAS LEFT IN A POSITION OF COMFORT AND SAFETY WITH THE SIDE RAIL UP, CALL LIGHT WITHIN REACH, YELLOW NONSKID SOCKS, AND BED IN LOW POSITION.
[2022-11-15 22:42] VITALS: BP 172/88
--- NOTE | 2022-11-16 00:35 | NUR ---
THIS STUDENT NURSE FOLLOWED UP WITH PATIENT VITALS AFTER ADMINISTERING LOPRESSOR AT 22:15. PATIENT WAS SLEEPING WHEN I WENT IN, AND DENIED ANY PAIN. B/P WAS 172/88 TAKEN MANUALLY AND NURSE ALBERTA VALENTINO WAS ALERTED. RESPIRATIONS WERE 36, TACHYPNEIC, SHALLOW, AND WHEEZY. PT DENIED ALBUTEROL TREATMENT AT THIS TIME.
[2022-11-16 03:22] VITALS: BP 153/69
[2022-11-16 03:24] VITALS: BP 153/69
--- NOTE | 2022-11-16 03:26 | NUR ---
SHIFT SUMMARY THIS STUDENT NURSE ADDRESSED THE PATIENT'S COMPLAINTS OF CHEST PAIN BY COMPLETING A [facility] CARDIAC AND RESPIRATORY ASSESSMENT. PT DENIED HAVING ANY PAIN, AND DID NOT WANT PAIN MEDICATIONS. THIS STUDENT NURSE MONITORED PATIENT'S VITAL SIGNS, AND ADMINISTERED THE PRESCRIBED LOPRESSOR TO HELP LOWER HIS B/P. THE PATIENT'S B/P WAS TRENDING DOWN THROUGHOUT MY SHIFT. PATIENT REFUSED THE PRN ALBUTEROL TREATMENT TO HELP ADDRESS HIS EXPIRATORY WHEEZE, THIS STUDENT NURSE KEPT THE HOB RAISED TO RELIEVE RESPIRATORY EFFORT. O2 STATS MAINTAINED OVER 97% ON 3L VIA N/C THROUGHOUT THE SHIFT. PATIENT MAINTAINED NPO AFTER 0000 DUE TO STRESS TEST ON 11/16/22. PATIENT DID NOT SHOW SIGNS OF WORSENING OF CONDITIONS DURING THE NIGHT EVIDENCED BY IMPROVING/MAINTAINING VITAL SIGNS. PATIENT REMAINED FREE FROM FALLS. CALL LIGHT WITHIN REACH, WILL CONTINUE TO MONITOR PATIENT CONDITION.
[2022-11-16 05:38] LABS: BASOPHILS ABSOLUTE AUTO 0.05 K/mm3 (0.00-0.23); BASOPHILS PERCENT AUTO 0 % (0-2); EOSINOPHILS ABSOLUTE AUTO 0.15 K/mm3 (0.00-0.68); EOSINOPHILS PERCENT AUTO 1 % (0-6); Hematocrit 40.3 % (37.0-53.0); Hemoglobin 12.7 g/dL (13.5-17.5); IMMATURE GRAN ABSOLUTE AUTO 0.07 K/mm3 (0.00-0.10); IMMATURE GRAN PERCENT AUTO 1 % (0-1); LYMPHOCYTES PERCENT AUTO 9 % (21-46); MONOCYTES ABSOLUTE AUTO 1.06 K/mm3 (0.16-1.47); MONOCYTES PERCENT AUTO 8 % (4-13); Mean Corpuscular HGB 31.1 pg (26.0-34.0); Mean Corpuscular HGB Conc 31.5 g/dL (31.5-36.5); Mean Corpuscular Volume 99 fL (80-100); Mean Platelet Volume 9.7 fL (9.1-12.4); NEUTROPHILS ABSOLUTE AUTO 11.51 K/mm3 (1.96-9.15); NEUTROPHILS PERCENT AUTO 82 % (41-73); Platelet Count 210 K/mm3 (150-400); RDW Coefficient Variation 12.3 % (11.7-14.2); RDW Standard Deviation 44.8 fL (35.1-46.3); Red Blood Cell Count 4.08 M/mm3 (4.30-5.90); White Blood Cell Count 14.04 K/mm3 (4.00-11.30)
[2022-11-16 06:04] LABS: Bun/Creatinine Ratio 13.8 (12.0-20.0); Creatinine, Blood 1.09 mg/dL (0.60-1.20); Potassium, Blood 3.3 mmol/L (3.5-5.5)
[2022-11-16 08:07] VITALS: BP 160/102
[2022-11-16 13:49] LABS: Anti-Xa UFH, PHA Monitoring 0.55 IU/mL; International Normalized Ratio 1.14; Prothrombin Time Results 11.9 Sec (9.7-11.5)
[2022-11-16 14:12] LABS: Albumin, Blood 3.1 g/dL (3.4-5.0); Anion Gap 4 mmol/L (6-16); Blood Urea Nitrogen 16 mg/dL (8-24); Bun/Creatinine Ratio 12.3 (12.0-20.0); CO2, Blood 35 mmol/L (21-32); Calcium, Blood 8.7 mg/dL (8.5-10.1); Chloride, Blood 97 mmol/L (98-108); Glomerular Filtration Rate 55 (60-); Glucose, Blood 236 mg/dL (70-99); Magnesium, Blood 1.8 mg/dL (1.6-2.4); Phosphorus, Blood 4.1 mg/dL (2.5-4.9); Potassium, Blood 3.6 mmol/L (3.5-5.5); Sodium, Blood 136 mmol/L (136-145)
[2022-11-16 15:09] VITALS: BP 104/63
--- NOTE | 2022-11-16 18:46 | NUR ---
SUMMARY- PT HAD SECOND PART OF STRESS TEST CONDUCTED. RESULTS WARRANTED CARDIOLOGY CONSULT. DR NAGEL CAME TO EVAL PT AND OPTED FOR MEDICAL MANAGEMENT. PT HAS HAD NO CHEST PAIN ALL DAY. O2 3L NC, CONT PULSE OXIMITER ORDERED, PT'S FAMLILY BROUGHT HIM HIS CPAP MACHINE FROM HOME. PT HAS BLE EDEMA, HAVE BEEN DIURESING TODAY. LIKELY HOME TOMORROW.
[2022-11-16 19:38] VITALS: BP 146/64
[2022-11-17 03:07] VITALS: BP 131/76
--- NOTE | 2022-11-17 04:12 | NUR ---
SHIFT SUMMARY ADMITTED FOR CHEST PAIN. LIMITED CODE, INTUBATION OK. WE ARE DIURESING HIM. HE IS ON 3 LPM O2. STRESS TEST PT 2 COMPLETED ON PREVIOUS SHIFT. HE IS INDEPENDENT - BRP. ACHS CBG'S, LOW SS. TELEMETRY: PACED @ 88 BPM. CARDIOLOGY CONSULT. HE IS ON ELLIQUIS. NO SURGERY IS PLANNED. CPAP @ NIGHT. CARDIAC DIET. A&O X4. PACEMAKER IN PLACE.
[2022-11-17 04:50] LABS: BASOPHILS ABSOLUTE AUTO 0.04 K/mm3 (0.00-0.23); BASOPHILS PERCENT AUTO 0 % (0-2); EOSINOPHILS ABSOLUTE AUTO 0.31 K/mm3 (0.00-0.68); EOSINOPHILS PERCENT AUTO 3 % (0-6); Hemoglobin 11.8 g/dL (13.5-17.5); IMMATURE GRAN ABSOLUTE AUTO 0.05 K/mm3 (0.00-0.10); IMMATURE GRAN PERCENT AUTO 0 % (0-1); LYMPHOCYTES ABSOLUTE AUTO 1.02 K/mm3 (0.84-5.20); LYMPHOCYTES PERCENT AUTO 9 % (21-46); MONOCYTES ABSOLUTE AUTO 1.06 K/mm3 (0.16-1.47); MONOCYTES PERCENT AUTO 9 % (4-13); Mean Corpuscular HGB 31.6 pg (26.0-34.0); Mean Corpuscular HGB Conc 31.1 g/dL (31.5-36.5); Mean Corpuscular Volume 102 fL (80-100); Mean Platelet Volume 9.6 fL (9.1-12.4); NEUTROPHILS ABSOLUTE AUTO 9.26 K/mm3 (1.96-9.15); NEUTROPHILS PERCENT AUTO 79 % (41-73); Platelet Count 176 K/mm3 (150-400); RDW Coefficient Variation 12.5 % (11.7-14.2); RDW Standard Deviation 47.4 fL (35.1-46.3); Red Blood Cell Count 3.73 M/mm3 (4.30-5.90); White Blood Cell Count 11.74 K/mm3 (4.00-11.30)
[2022-11-17 05:09] LABS: Albumin, Blood 2.8 g/dL (3.4-5.0); Anion Gap 0 mmol/L (6-16); Blood Urea Nitrogen 23 mg/dL (8-24); Bun/Creatinine Ratio 16.8 (12.0-20.0); CO2, Blood 36 mmol/L (21-32); Calcium, Blood 8.4 mg/dL (8.5-10.1); Chloride, Blood 98 mmol/L (98-108); Creatinine, Blood 1.37 mg/dL (0.60-1.20); Glomerular Filtration Rate 52 (60-); Glucose, Blood 173 mg/dL (70-99); Magnesium, Blood 1.9 mg/dL (1.6-2.4); Potassium, Blood 3.4 mmol/L (3.5-5.5); Sodium, Blood 134 mmol/L (136-145)
[2022-11-17 07:23] VITALS: BP 118/54
--- NOTE | 2022-11-17 13:08 | NUR ---
Pt sitting in chair upon arrival. Pt puting his O2 NC back on with him reporting taking it off to walk to the bathroom. Pt's O2 saturations in low to mid 80's but recovers back to the 90's shortly after putting his NC back on. Pt denies pain, anxiety, nausea, and SOB at rest. He does report dyspnea with ambulation. Encouraged Pt to keep O2 on when up ambulating. Pt reports being single and has several children, some of who live close by his home. Pt reports adequate support when he returns home. Engaged in therapeutic conversation regarding consider completing a POLST to reflect his wishes for life sustaining treatments and heroic measures. Pt denies need at this time. Discussed current code status to confirm wishes. Pt reports wishes are no CPR and no Intubation. He states "when it's my time, it's my time" and does not want any heroic measures. Pt reports no concerns at this time. Spoke with Primary RNs Kayley and Vladimir. No concerns reported at this time. Spoke with Dr Herzog. Placed DNR order for Pt per V/O from Dr Herzog. Palliative Care will remain available
[2022-11-17 15:17] VITALS: BP 118/62
[2022-11-17 19:46] VITALS: BP 141/77
--- NOTE | 2022-11-18 04:19 | NUR ---
SHIFT SUMMARY ADMITTED FOR CP. DNR CODE. PLAN IS TO [facility]. STRESS TESTS PART 1 & 2 COMPLETED. CARDIOLOGY CONSULT IS DR. NAGEL. TELEMETRY: PACED @ 77 BPM. ACHS CBG'S, LOW SS. CARDIAC DIET. INDEPENDENT IN ROOM- BRP. A&O X4. 3 LPM O2. CPAP @ HS (HE USES IT PRN). HX OF AFIB. CHEST XRAY NEGATIVE.
[2022-11-18 04:39] LABS: BASOPHILS ABSOLUTE AUTO 0.05 K/mm3 (0.00-0.23); BASOPHILS PERCENT AUTO 1 % (0-2); EOSINOPHILS ABSOLUTE AUTO 0.32 K/mm3 (0.00-0.68); EOSINOPHILS PERCENT AUTO 4 % (0-6); Hematocrit 36.2 % (37.0-53.0); Hemoglobin 11.4 g/dL (13.5-17.5); IMMATURE GRAN ABSOLUTE AUTO 0.04 K/mm3 (0.00-0.10); IMMATURE GRAN PERCENT AUTO 1 % (0-1); LYMPHOCYTES PERCENT AUTO 13 % (21-46); MONOCYTES ABSOLUTE AUTO 0.77 K/mm3 (0.16-1.47); MONOCYTES PERCENT AUTO 9 % (4-13); Mean Corpuscular HGB 31.5 pg (26.0-34.0); Mean Corpuscular HGB Conc 31.5 g/dL (31.5-36.5); Mean Corpuscular Volume 100 fL (80-100); NEUTROPHILS ABSOLUTE AUTO 6.53 K/mm3 (1.96-9.15); NEUTROPHILS PERCENT AUTO 74 % (41-73); Platelet Count 201 K/mm3 (150-400); RDW Coefficient Variation 12.4 % (11.7-14.2); RDW Standard Deviation 45.5 fL (35.1-46.3); Red Blood Cell Count 3.62 M/mm3 (4.30-5.90); White Blood Cell Count 8.81 K/mm3 (4.00-11.30)
[2022-11-18 04:57] LABS: Bun/Creatinine Ratio 22.6 (12.0-20.0); Calcium, Blood 8.4 mg/dL (8.5-10.1); Creatinine, Blood 1.33 mg/dL (0.60-1.20)
[2022-11-18 05:00] VITALS: BP 161/66
[2022-11-18 07:36] VITALS: BP 114/64
[2022-11-18 16:21] VITALS: BP 149/79
--- NOTE | 2022-11-18 17:34 | NUR ---
SHIFT SUMMARY NO ACUTE CHANGES DURING SHIFT. PT ALERT AND ORIENTED, CALLS APPROPRIATELY. PT ON 3L NC, INDEPENDENT IN ROOM. PT WALKING TO BATHROOM, STRICT I/O'S. IV DIURETICS. NO C/O PAIN .WILL CONTINUE TO MONITOR. CALL LIGHT WITHIN REACH.
[2022-11-18 19:44] VITALS: BP 143/64
--- NOTE | 2022-11-19 04:32 | NUR ---
SHIFT SUMMERY, PT UP AT MEHUL. PT UP TO BR SEVERAL TIMES. PT SITTING UP IN CAHR LAST NOC SITTING UP IN CHAIR NOT LAYING IN BED. PT UNHOOKING O2 SAT MONITOR THEN REHOOKING IT BACK UP AFTER GONG TO BR. CALL LIGHT IN REACH.
[2022-11-19 05:08] VITALS: BP 148/77
[2022-11-19 05:51] LABS: Magnesium, Blood 2.1 mg/dL (1.6-2.4)
[2022-11-19 05:52] LABS: Anion Gap Unable to Calculate mmol/L (6-16); Blood Urea Nitrogen 29 mg/dL (8-24); Bun/Creatinine Ratio 21.2 (12.0-20.0); CO2, Blood 42 mmol/L (21-32); Calcium, Blood 9.2 mg/dL (8.5-10.1); Chloride, Blood 94 mmol/L (98-108); Creatinine, Blood 1.37 mg/dL (0.60-1.20); Glomerular Filtration Rate 52 (60-); Glucose, Blood 245 mg/dL (70-99); Potassium, Blood 3.8 mmol/L (3.5-5.5); Sodium, Blood 135 mmol/L (136-145)
[2022-11-19 07:23] VITALS: BP 136/73
[2022-11-19] MEDS ORDERED: METO2.5 PO (13:31)
[2022-11-19] MEDS ORDERED: VISBIOME 112.51 EACH PO (13:32)
[2022-11-19] MEDS ORDERED: FURO40 PO (13:33)
== END 2022-11-19 13:59 | disposition home or self-care (01) | DRG 291 ==
LOC: ER 11:03 → MEDS 14:16 → ENPENDDIS 11-19 11:38 → MEDS 11-19 13:59
PROVIDERS: Internal Medicine; Physician Assistant; ADMIT Internal Medicine
PROC: 5A09357 Assistance with Respiratory Ventilation, Less than 24 Consecutive Hours, Continuous Positive Airway Pressure (ICD-10-PCS; principal; 2022-11-16)
DX: I13.0 Hypertensive heart and chronic kidney disease with heart failure and stage 1 through stage 4 chronic kidney disease, or unspecified chronic kidney disease (principal); I50.33 Acute on chronic diastolic (congestive) heart failure; N17.9 Acute kidney failure, unspecified; J96.11 Chronic respiratory failure with hypoxia; Z68.41 Body mass index [BMI] 40.0-44.9, adult; I25.10 Atherosclerotic heart disease of native coronary artery without angina pectoris; E87.6 Hypokalemia; Z66 Do not resuscitate; G47.33 Obstructive sleep apnea (adult) (pediatric); E11.22 Type 2 diabetes mellitus with diabetic chronic kidney disease; I48.0 Paroxysmal atrial fibrillation; E11.65 Type 2 diabetes mellitus with hyperglycemia; N18.30 Chronic kidney disease, stage 3 unspecified; J44.9 Chronic obstructive pulmonary disease, unspecified; E78.5 Hyperlipidemia, unspecified; Z98.890 Other specified postprocedural states; Z95.0 Presence of cardiac pacemaker; Z79.84 Long term (current) use of oral hypoglycemic drugs; Z79.02 Long term (current) use of antithrombotics/antiplatelets; Z95.5 Presence of coronary angioplasty implant and graft; Z79.4 Long term (current) use of insulin; Z86.79 Personal history of other diseases of the circulatory system; Z79.82 Long term (current) use of aspirin; Z99.89 Dependence on other enabling machines and devices; Z79.01 Long term (current) use of anticoagulants; Z79.899 Other long term (current) drug therapy; Z98.42 Cataract extraction status, left eye; Z98.41 Cataract extraction status, right eye; E66.01 Morbid (severe) obesity due to excess calories; R26.9 Unspecified abnormalities of gait and mobility; W19.XXXA Unspecified fall, initial encounter
CPT/HCPCS: 36415; 71046; 78452; 80048; 80053; 80069; 82947; 83036; 83690; 83735; 83880; 84100; 84145; 84484; 85025; 85520; 85610; 85730; 87070; 87205; 93005; 93010; 93017; 94640; 94660; 94664; 94760; 94762; 96365; 96366; 96372; 96374-59; 96375; 96375-59; 96376; 97110; 97112; 97116; 97161; 99285-25; A9270; A9500; C8929; G0378; J0280; J0696; J0706; J1644; J1650; J1940; J2785; J3475; J7050; J7060; Q9957

== ENCOUNTER → 2023-11-10 | Outpatient (CLI) | payer MEDICARE, OTHER ==
[~2023-11-10] MED LIST changes: +BUME1; +BUMETANIDE2 M6 PO; +DOXY100 PO; +FARXIGA10 MG PO; +FUROSEMIDE20 MG PO; +Flonase 0.05% N16 GM; +ISOSORBIDE MONO30 MG PO; -METO100ER PO; +METO2.5 PO; +METO50ER PO; +NITR.4SL SL; +NOVOLOG FL100 UNIT/3 SQ; +PLAVIX75 MG PO; +POTA10T PO; +Phospha 250 Ne250 MG PO; +TOLT4 PO; +TORSE20 PO; +TRAZ50 PO; +VISBIOME 112.51 EACH PO
[2023-11-10 17:32] LABS: Creatinine Urine 36.6 mg/dL (27.00-270.00); Protein, Urine Quantitative 13.4 mg/dL (0.0-11.9)
[2023-11-10 17:34] LABS: Microalbumin, Urine Quant. 7.17 mg/L (0.000-20.000)
== END | disposition home or self-care (01) ==
LOC: LAB SHORT 12:56 → LAB 12:56 → LAB FUT 11-07 13:10
PROVIDERS: Internal Medicine Nephrology
DX: N18.2 Chronic kidney disease, stage 2 (mild) (principal); D63.1 Anemia in chronic kidney disease; N25.81 Secondary hyperparathyroidism of renal origin; E55.9 Vitamin D deficiency, unspecified; E78.00 Pure hypercholesterolemia, unspecified; R76.9 Abnormal immunological finding in serum, unspecified; R94.5 Abnormal results of liver function studies; R94.6 Abnormal results of thyroid function studies
CPT/HCPCS: 81050; 82043; 82570; 84156